=== PATIENT | female | born 1955 | race African-American/Black ===

== ENCOUNTER 2023-01-31 14:31 | Emergency (ER) | payer OTHER, MEDICAID ==
[~2023-01-31] VITALS: Ht 167.6 cm; Wt 95.0 kg
[2023-01-31 14:43] VITALS: TEMP 98.1; O2SAT 99
[2023-01-31 15:00] VITALS: BP 154/78; PULSE 84; RESP 16
[2023-01-31] MEDS ORDERED: IBUPROFEN 600MG TABLET PO ONE (15:00)
[2023-01-31] MEDS ORDERED: KETO10TA2 MT (17:24)
== END 2023-01-31 18:22 | disposition home or self-care (01) ==
LOC: ER 14:31
DX: S22.32XA Fracture of one rib, left side, initial encounter for closed fracture (principal); W18.39XA Other fall on same level, initial encounter; Y93.89 Activity, other specified; Y92.89 Other specified places as the place of occurrence of the external cause; Y99.8 Other external cause status
CPT/HCPCS: 71046; 71250; 82962; 99284